=== PATIENT | male | born 1975 | race African-American/Black ===

== ENCOUNTER 2024-01-21 15:08 | Emergency (ER) | payer OTHER, SELFPAY ==
--- NOTE | ~2024-01-21 | CT_ITS ---
EXAMINATION: CT abdomen pelvis w con DATE: 01/21/2024 18:30 INDICATION: suprapubuc and LLQ abd pain TECHNIQUE: Computed tomography (CT) of the abdomen and pelvis was performed with 100 mL Omnipaque-350 intravenous contrast. Automated exposure control and iterative reconstruction technique were employe d. The dose-length product was 1212.61 mGy-cm. COMPARISON: None. FINDINGS: Lower thorax: Coronary artery calcification Liver: Normal. Biliary/Gallbladder: Gallbladder is normal. No bile duct dilation. Pancreas: No mass or duct dilation. Spleen: Normal. Adrenals:No mass. Kidneys: No suspicious mass, obstructing stone, or hydronephrosis simple left midpole cyst. Subcentim eter right upper pole hypodensity, too small to characterize but most likely represents a cyst. GI tract: Mild distal esophageal and gastric wall edema. Segmental distal descending colon/proximal s igmoid colon wall thickening with surrounding inflammatory change and fluid with inflamed diverticuli . No small or large bowel dilation. Normal appendix. Mesentery/Peritoneum: No ascites, mass, or free air. Retroperitoneum: No mass. Pelvis: Pelvic organs are within normal limits. Soft Tissues: Soft tissues and body wall unremarkable. Bones: No acute osseous finding. IMPRESSION: Acute, uncomplicated left lower quadrant diverticulitis. Mild esophagitis/gastritis. Reviewed, dictated and finalized at location K.
[2024-01-21 15:21] VITALS: PULSE 103; RESP 20; TEMP 36.9; O2SAT 100
--- NOTE | 2024-01-21 17:31 | ED.ABDPAIN ---
HPI - Abdominal Pain General Chief Complaint: Abdominal Pain Stated Complaint: abd pain Time Seen by Provider: 01/21/24 17:19 History of Present Illness HPI narrative: 48-year-old male with reported history of diverticulitis presents to the emergency department for abdominal pain x2 days. Patient states he had a snickers 2 days ago shortly after began developing pain in his suprapubic region and left lower quadrant. States he thought he was having a flare-up of his diverticulitis again and began taking leftover antibiotic he had at home. Pt brought the medication with him, it is Bactrim. States he took 2 pills and improved, therefore he called a only physician to get a refill for the medication. States he was prescribed Augmentin and took 2 pills of in his pain is worsened. He states his last bowel movement was today and soft. Denies nausea, vomiting, fevers, prior abdominal surgeries, dysuria or hematuria, melena or hematochezia. States he is normally treated with Cipro and Flagyl with resolution. Related Data Allergies Allergy/AdvReac Type Severity Reaction Status Date / Time No Known Allergies Allergy Verified 01/21/24 17:42 Review of Systems Review of Systems: CONSTITUTIONAL: Denies fever, chills, or sweats. EYES: Denies visual changes, redness, or discharge. ENT: Denies rhinorrhea, congestion, sore throat, or otalgia. CARDIOVASCULAR: Denies chest pain, palpitations, or edema. RESPIRATORY: Denies cough or dyspnea. GASTROINTESTINAL: See HPI GENITOURINARY: Denies dysuria or hematuria. SKIN: Denies rash or itching. MUSCULOSKELETAL: Denies back pain, joint pain, or myalgia. NEUROLOGIC: Denies headache, numbness, or weakness. PSYCHIATRIC: Denies anxiety or depression. Exam Narrative: GENERAL: Well-appearing, well-nourished, and in no acute distress. Nontoxic, resting comfortably in exam bed. HEAD: Normocephalic, atraumatic. EYES: PERRLA and EOMI. ENT: Nares clear, no rhinorrhea or epistaxis. Mucous membranes moist. NECK: Supple. CHEST: Clear to auscultation. No respiratory distress. HEART: Regular rate and rhythm. No murmur heard. Normal peripheral pulses. ABDOMEN: Quiet bowel sounds. Abdomen soft with tenderness and voluntary guarding the left lower quadrant. No rebound or rigidity. EXTREMITIES: Normal range of motion. No edema. SKIN: Warm, dry, no rash. NEURO: No focal deficits. Alert and oriented x3 Course Vital Signs Vital signs: Vital Signs Temperature 98.5 F 01/21/24 15:21 Pulse Rate 103 H 01/21/24 15:21 Respiratory Rate 20 01/21/24 15:21 Pulse Oximetry 100 01/21/24 15:21 Oxygen Delivery Room Air 01/21/24 15:21 Temperature 98.5 F 01/21/24 15:21 Pulse Rate 98 01/21/24 18:46 Respiratory Rate 18 01/21/24 18:46 Pulse Oximetry 98 01/21/24 18:46 Oxygen Delivery Room Air 01/21/24 15:21 MDM - Abdominal Pain MDM Narrative Medical decision making narrative: 48-year-old male reported history of diverticulitis presents to emergency department for suprapubic and left lower quadrant abdominal pain x2 days. See HPI for further history. Triage vital significant for mild tachycardia 103, otherwise unremarkable. He is afebrile and nontoxic appearing. Exam significant for the above. CBC with leukocytosis of 13.3, no bandemia. Chemistries unremarkable. UA without infection. Lipase normal. Lactic acid normal 1.2. CT abdomen pelvis shows evidence of acute uncomplicated left lower quadrant diverticulitis. There is evidence of mild evidence of esophagitis/ gastritis. Patient received IV fluids and morphine with improvement in symptoms. He is tolerating p.o. intake. Feel he is safe for outpatient management or diverticulitis. Will start him on Cipro and Flagyl given this has worked for him in the past and he feels the Augmentin is not working. First dose is provided here. Will also provide [place] and Reglan for symptomatic control. He is taking omeprazole for history o
[2024-01-21] MEDS: MORPHINE SULFATE (*CRX) 4 MG/ML INJ IV PUSH (17:49)
[2024-01-21] MEDS: SODIUM CHLORIDE 0.9% IV 1,000 ML 999 ML IV CONT (17:49)
[2024-01-21 17:54] LABS: Basophils Percent Auto 0.3 % (0.2-1.2); Eosinophils Absolute Auto 0.1 K/mm3 (0-0.3); Eosinophils Percent Auto 0.7 % (0-4.4); Hematocrit 42.5 % (42.0-52.0); Hemoglobin 14.3 g/dL (14.0-18.0); Immature Granulocyte Absolute 0.03 K/mm3 (0.00-0.031); Immature Granulocyte Percent A 0.2 % (0-0.5); Lymphocytes Absolute Auto 1.59 K/mm3 (0.9-3.2); Lymphocytes Percent Auto 11.9 % (18.3-44.2); Mean Corpuscular HGB Conc 33.6 g/dl (32-36); Mean Corpuscular Hemoglobin 29.6 pg (26-34); Mean Platelet Volume 9.4 fl (7.4-10.4); Monocytes Absolute Auto 0.8 K/mm3 (0.1-0.6); Monocytes Percent Auto 6.3 % (2.6-8.5); Neutrophils Absolute Auto 10.7 K/mm3 (1.3-6.7); Neutrophils Percent Auto 80.6 % (45.5-73.1); Platelet Count Result 281 k/mm3 (150-375); Red Blood Count 4.83 M/mm3 (4.6-6.20); Red Cell Distribution Width 13.9 % (11.5-14.5); White Blood Count 13.3 K/mm3 (4.5-10.0)
[2024-01-21 18:00] LABS: Appearance Urine Clear (Clear); Bacteria Urine None Seen /hpf; Bilirubin Urine Negative (Negative); Blood Urine Negative (Negative); Color Urine Yellow (Yellow); Glucose Urine UA Negative (Negative); Ketones Urine Negative (Negative); Leukocyte Esterase Ur Negative LEU/UL (Negative); Nitrate Urine Negative (Negative); Non Pathogenic Casts 0-2; Protein Urine 1+ mg/dL (Negative); RBC Urine 0-2 /hpf (0-2); Specific Grav Ur 1.018 (1.001-1.035); Squamous Epithelial Cell Urine None Seen /hpf (Few); WBC Urine 0-5 /hpf (0-3)
[2024-01-21 18:04] LABS: Add Urine Microscopic? YES
[2024-01-21 18:07] LABS: Lactic Acid Reflex 1.2 mmol/L (0.7-2.0)
[2024-01-21 18:08] LABS: Alanine Aminotransferase 34 U/L (6-50); Albumin Level 4.6 g/dL (3.5-5.1); Alkaline Phosphatase 84 U/L (38-126); Anion Gap 6 mmol/L (8-16); Aspartate Amino Transferase 36 U/L (17-59); Bilirubin,Total 0.7 mg/dL (0.2-1.3); Blood Urea Nitrogen 11 mg/dL (9-20); Calcium 9.7 mg/dL (8.4-10.2); Carbon Dioxide 28 mmol/L (22-30); Chloride 103 mmol/L (98-107); Estimated CRCL calculation 86 ml/min; Estimated Glomerular Filt Rate > 60; Glucose 106 mg/dL (65-110); Potassium 3.9 mmol/L (3.4-5.0); Sodium 137 mmol/L (137-145)
[2024-01-21 18:46] VITALS: BP 168/89; PULSE 98; RESP 18; O2SAT 98
[2024-01-21] MEDS: metroNIDAZOLE 500 MG TABLET PO (19:03)
[2024-01-21] MEDS: CIPROFLOXACIN 500 MG TAB PO (19:03)
== END 2024-01-21 19:15 | disposition home or self-care (01) ==
PROVIDERS: Emergency Provider Physician Assistant; PCP Nurse Practitioner Family
DX: K57.32 Diverticulitis of large intestine without perforation or abscess without bleeding (principal); K20.90 Esophagitis, unspecified without bleeding; K29.70 Gastritis, unspecified, without bleeding
CPT/HCPCS: 36415; 74177; 80053; 83605; 85025; 96361; 96374; 99284; A9270; J2270; J7030; Q9967